=== PATIENT | male | born 1955 | race Caucasian/White ===

== ENCOUNTER 2025-06-13 18:50 | Emergency (ER) | payer MEDICARE, OTHER, SELFPAY ==
[2025-06-13 18:51] VITALS: BP 158/94; PULSE 68; RESP 18; TEMP 36.3; O2SAT 97; BMI 36.9
--- NOTE | 2025-06-13 20:04 | ED_ITS ---
HPI - Skin/Abscess/Foreign Bdy General: Chief complaint: Skin/Abscess/Foreign Body Stated complaint: swelling, rash, allergic reaction Time Seen by Provider: 06/13/25 19:59 History of Present Illness: 69-year-old man who is nearby [facility] from [place] and suddenly had some itching and noticed a generalized rash on his abdomen and his hands felt swollen. He took some Benadryl and has since improved but is worried that this might recur so she brought him to the emergency room. No increased work of breathing. No chest pain. No previous history of this. No known allergies. Related Data Previous Rx's ?Medication ?Instructions ?Recorded prednisone 20 mg tablet 60 mg (3 x 20 mg) PO DAILY 5 days 06/13/25 #15 tabs Allergies Allergy/AdvReac Type Severity Reaction Status Date / Time No Known Allergies Allergy Verified 06/13/25 18:55 Review of Systems Narrative: Constitutional symptoms: Negative except as documented in HPI. Skin symptoms: Negative except as documented in HPI. Eye symptoms: Negative except as documented in HPI. ENMT symptoms: Negative except as documented in HPI. Respiratory symptoms: Negative except as documented in HPI. Cardiovascular symptoms: Negative except as documented in HPI. Gastrointestinal symptoms: Negative except as documented in HPI. Genitourinary symptoms: Negative except as documented in HPI. Musculoskeletal symptoms: Negative except as documented in HPI. Neurologic symptoms: Negative except as documented in HPI. Psychiatric symptoms: Negative except as documented in HPI. Endocrine symptoms: Negative except as documented in HPI. Physical Exam Narrative: EXAM NARRATIVE: General: Alert, no acute distress. Skin: warm and dry Head: Normocephalic Neck: Trachea midline Eye: Extraocular movements are intact. Ears, nose, mouth and throat: Oral mucosa moist Respiratory: Respirations are non-labored Musculoskeletal: Normal ROM Gastrointestinal: Abdomen does not appear distended Neurological: Alert and oriented, No focal neurological deficit observed. Psychiatric: Cooperative, appropriate mood & affect. Course Vital Signs: Vital signs: Vital Signs Temperature 97.4 F L 06/13/25 18:51 Pulse Rate 68 06/13/25 18:51 Respiratory Rate 18 06/13/25 18:51 Blood Pressure 158/94 06/13/25 18:51 Pulse Oximetry 97 06/13/25 18:51 Oxygen Delivery Me thod Room Air 06/13/25 18:51 MDM - Skin/Abscess/Foreign Bdy Medicial Decision Making Medical decision making: Differential diagnosis including but not limited to and based on the above HPI, review of systems and physical exam: In a patient with complaints of allergic reaction have concern for anaphylaxis, medication reactions and viral reactions. Orders placed to evaluate differential diagnosis based on the above differential, HPI and physical exam Assessment and plan: Allergic reaction - Discharged home - Discussed plan with patient. Answered any questions. - Evaluation and treatment of this problem were appropriate in the emergency setting. No radiology studies performed this visit Discharge Plan Discharge Patient Disposition: Home Clinical Impression: Allergic reaction Condition: Stable Prescriptions: New prednisone 20 mg tablet 60 mg PO DAILY 5 Days Qty: 15 0RF Discharge Orders: Discharge ED (Routine); Ordered 06/13/25 Ordered By: Loreto Curiel Discharge Diet: Usual diet Discharge Activity: Increase activity as tolerated Patient Instructions: General Allergic Reaction (ED), Opioid Safety, Pain Management, Patient Portal & Alejandro Instructions Activity Restrictions/Additional Instructions: If allergic reaction comes back please take the steroids you have been prescribed otherwise you do not need to take them Assessment and plan: Possible allergic reaction - Discharged home - Discussed plan with patient. Answered any questions. - Evaluation and treatment of this problem were appropriate in the emergency setting. Print Language: Divehi Coding Level of Care Code ED Waiter/[employer]
== END 2025-06-13 20:23 | disposition home or self-care (01) ==
PROVIDERS: Emergency Provider Emergency Medicine
DX: T78.40XA Allergy, unspecified, initial encounter (principal); X58.XXXA Exposure to other specified factors, initial encounter
CPT/HCPCS: 99283